=== PATIENT | female | born 1975 | race Caucasian/White ===

== ENCOUNTER → 2017-08-04 12:59 | Outpatient (CLI) | payer BC | END | disposition home or self-care (01) | LOC: D.MAMMO 10:00 | DX: Z12.31 Encounter for screening mammogram for malignant neoplasm of breast (principal) ==

== ENCOUNTER 2017-10-24 07:44 | Outpatient (CLI) | payer BC | END 2017-10-24 23:59 | disposition home or self-care (01) | LOC: D.MAMMO 07:44 | DX: R92.8 Other abnormal and inconclusive findings on diagnostic imaging of breast (principal) ==